=== PATIENT | female | born 1950 | race Caucasian/White ===

== ENCOUNTER 2018-11-21 13:15 | Inpatient (IN) | payer MEDICARE ==
[2018-12-03] MEDS ORDERED: Tranexamic Acid 1,000 MG/10 ML VIAL ONE (06:50)
[2018-12-03] MEDS ORDERED: Sodium Chloride 0.9% 100 ML ONE (06:50)
[2018-12-03] MEDS ORDERED: ceFAZolin Sodium (SDC) 2 GM/100 ML BAG ONE (06:50)
[2018-12-03] MEDS ORDERED: Lidocaine 1.5% w/Epi 1:200K 30 ML VIAL (Epid Use) ONE (07:56)
[2018-12-03] MEDS ORDERED: Naloxone HCl 0.4 mg/ml Vial IVP PRN (08:45)
[2018-12-03] MEDS ORDERED: diphenhydrAMINE 50 MG/ML VIAL IVP PRN (08:45)
[2018-12-03] MEDS ORDERED: Naloxone HCl 0.4 mg/ml Vial IV PRN (08:45)
[2018-12-03] MEDS ORDERED: HYDROcodone/Acetaminophen 5/325 mg Tablet PO PRN ×4 (08:45→09:08)
[2018-12-03] MEDS ORDERED: traMADol HCl 50 MG TAB PO PRN ×2 (08:45)
[2018-12-03] MEDS ORDERED: Promethazine HCl 25 MG SUPP PR PRN (08:45)
[2018-12-03] MEDS ORDERED: Acetaminophen 500 MG TAB PO PRN (08:45)
[2018-12-03] MEDS ORDERED: diphenhydrAMINE 25 MG CAP PO PRN ×2 (08:45→09:05)
[2018-12-03] MEDS ORDERED: diphenhydrAMINE 50 MG/ML VIAL IM PRN (08:45)
[2018-12-03] MEDS ORDERED: Promethazine HCl 25 MG/ML VIAL IM PRN ×3 (08:45→10:51)
[2018-12-03] MEDS ORDERED: Ondansetron PF 4 MG/2 ML Vial IVP PRN ×2 (08:45→09:05)
[2018-12-03] MEDS ORDERED: Hydrocerin (Eucerin) Cream 120 gm Jar TOP PRN (08:45)
[2018-12-03] MEDS ORDERED: Bupivacaine 0.25% 10 ML VIAL EPIDURAL PRN (08:45)
[2018-12-03] MEDS ORDERED: Zolpidem Tartrate 5 MG TAB PO PRN ×2 (08:45→09:05)
[2018-12-03] MEDS ORDERED: Levofloxacin 500 mg/D5W 100 ml Premix Bag ONE (09:03)
[2018-12-03] MEDS ORDERED: Acetaminophen 325 MG TAB PO PRN (09:05)
[2018-12-03] MEDS ORDERED: Bupivacaine HCl 0.5%/Epinephrine 1:200,000/PF 30 ml Vial ONE (09:13)
[2018-12-03] MEDS ORDERED: Ondansetron HCl/PF 4 MG/2 ML Vial IVP PRN (10:51)
[2018-12-03] MEDS ORDERED: Promethazine HCl 25 MG/ML VIAL SLOW IVP PRN (10:51)
--- NOTE | 2018-12-03 11:06 | OP ---
DATE OF PROCEDURE: 12/03/2018 PREOPERATIVE DIAGNOSIS: End-stage bicompartmental osteoarthritis, right hip. POSTOPERATIVE DIAGNOSIS: End-stage bicompartmental osteoarthritis, right hip. PROCEDURE PERFORMED: Press-fit right total hip arthroplasty. SLABBING MACHINE OPERATOR: Nelson Putnam PA-C ANESTHESIA: General via endotracheal tube augmented with indwelling epidural. COMPONENTS USED: [employer] Accolade II size 4 press-fit hip stem with a Trident PSL 50 mm press-fit acetabular shell, 36 mm inner diameter 10 degree polyethylene fixed bearing insert, and a ceramic 36 mm V40 femoral head. FINDINGS: End-stage severe degenerative bicompartmental disease, mzqo-vl-ruae arthrosis, periarticular osteophyte formation, large tears of fusion, hypertrophic synovium, and changes consistent with degenerative chronic osteoarthritis. INPUT: 1500 mL crystalloid. OUTPUT: 400 mL of clear yellow urine. ESTIMATED BLOOD LOSS: 100 mL. DRAINS: None. SPECIMENS: None. COMPLICATIONS: None. COUNTS: Correct. INDICATION FOR SURGERY: Marta is a 68-year-old female, who has had progressive right hip, groin, and thigh pain and problems with standing or walking for the last five to seven years. She has failed conservative management, elected to proceed with total hip arthroplasty as definitive treatment for pain. PROCEDURE IN DETAIL: After informed consent was obtained in the preoperative holding area, the patient was taken to the operative suite where general anesthesia was induced. The patient was then positioned in the lateral decubitus position. The hip was then prepped and draped in usual sterile fashion. The patient received preoperative antibiotics. Prior to incision, time-out was called and all members of the surgical team agreed upon site, surgeon, and patient. After this, a longitudinal incision was made directly over the trochanter, noted by palpation extending 2 fingerbreadths above and below the trochanter. The deeper subcutaneous layer was undermined with Bovie electrocautery. The iliotibial band was encountered and incised sharply and the plane below this was developed bluntly. A Charnley retractor was placed to hold this opened. The lateral aspect of the trochanter and the abductor muscles were encountered and then reflected anteriorly off the trochanter using Bovie electrocautery. Once this was completed, the anterior capsule was then encountered and identified and copious capsulotomy was carried out, exposing the femoral neck and head. Dislocation maneuver was then performed and an in situ provisional neck cut was then made using the oscillating saw. Attention was then turned to acetabular preparation and sequential reaming was carried out up to the appropriate diameter. A trial was then malleted into place with good firm resistance and no pullout. The permanent acetabular shell was then malleted squarely into place, as was the appropriate liner. Once completed, the wound was copiously irrigated and attention was then turned to femoral preparation. Flexion and external rotation were performed of the exposed thigh and femoral elevators were then placed at the proximal aspect of the wound. Canal finder was used to establish the length of the canal and sequential reaming was carried out, followed by broaching. Once the appropriate stability was established with the trial broaches with flexion, extension and rotational stability, we did trial with neutral and 2 mm offset incremental necks. Once the appropriate size was decided upon, with good stability noted with flexion, extension, internal and external rotation and shuck being negative, we removed the femoral trial broach and malleted into place the permanent prosthesis with good firm fit, which was also stable to rotation. Again, the hip felt very stable to flexion, extension, internal and external rotation. Leg lengths appeared near anatomic clinically and we were quite happy with prosthesis placement. Copious irrigation was then carried out through the entirety of the wound. Primary closure of the abductors was accomplished with interrupted #2 Vicryl qfovlw-qh-gsyco stitches and the IT band was then closed with interrupted #2 Vicryl, oversewn with a #2 running barbed Quill stitch. Subcutaneous fascia was closed with running barbed Quill stitch and a subcuticular Monocryl barbed Quill stitch was used for skin closure and augmented with skin cement. A sterile dressing was applied. The procedure was terminated without any complication. All counts were correct. The patient was awakened in the operative suite and taken to the recovery room in stable condition. Job ID: [id number]
[2018-12-03] MEDS ORDERED: Fentanyl 100 MCG/2 ML VIAL ONE (11:29)
--- NOTE | 2018-12-03 11:54 | RAD ---
RIGHT HIP TWO VIEWS: HISTORY: Postop right hip arthroplasty. COMPARISON: None. FINDINGS: Two views of the right hip show the patient to be status post right hip arthroplasty without perihard estevez lucency or fracture. Air in the soft tissues is from recent surgery. IMPRESSION: Status post right hip arthroplasty without evidence of complication. POS: CET
[2018-12-03] MEDS: Ketorolac Tromethamine 30 MG/ML VIAL IVP SCH ×2 (12:50→17:42)
[2018-12-03] MEDS: Sodium Chloride 0.9% 1,000 ML IV SCH ×3 (14:35→21:07)
[2018-12-03] MEDS ORDERED: Dexamethasone 20 MG/5 ML VIAL ONE (15:35)
[2018-12-03] MEDS ORDERED: Ondansetron PF 4 MG/2 ML Vial ONE (15:35)
[2018-12-03] MEDS ORDERED: PROPOFOL 200 MG/20 ML VIAL ONE (15:35)
[2018-12-03] MEDS ORDERED: Lidocaine 1% PF 5 ML VIAL ONE (15:35)
[2018-12-03] MEDS: CEFAZOLIN 2 GM, Admixture Fee 1 EACH in Sodium Chloride 0.9% 100 ML IVPB SCH ×2 (15:52→23:50)
[2018-12-03] MEDS: Atorvastatin Calcium 10 MG TAB PO SCH (21:24)
[2018-12-03] MEDS: Aspirin 81 mg Enteric Coated Tablet PO SCH (21:24)
[2018-12-04] MEDS: Ketorolac Tromethamine 30 MG/ML VIAL IVP SCH ×4 (00:07→19:28)
[2018-12-04] MEDS ORDERED: cloNIDine 0.1 MG TAB PO PRN (01:10)
[2018-12-04] MEDS ORDERED: hydrALAZINE 20 MG/ML VIAL SLOW IVP PRN (01:10)
[2018-12-04] MEDS: fentaNYL Citrate/PF 500 MCG, Bupivacaine 10 ML in Sodium Chloride 0.9% 80 ML EPIDURAL SCH ×2 (04:33→20:29)
[2018-12-04 05:34] LABS: Hemoglobin 10.5 g/dL (12.0-16.0); Mean Corpuscular HGB CONC 32.4 g/dL (32.0-36.0); Mean Corpuscular Hemoglobin 30.3 pg (27.0-31.0); Mean Corpuscular Volume 93.4 fL (78.0-98.0); Mean Platelet Volume 8.7 fL (7.4-10.4); Platelet Count 186 thou/uL (130-400); RBC Distribution Width 11.5 % (11.5-14.5); Red Blood Cell (RBC) Count 3.48 mill/uL (4.20-5.40); White Blood Cell (WBC) Count 8.4 thou/uL (4.8-10.8)
[2018-12-04 05:45] LABS: Anion Gap 10 mmol/L (10-20); BUN (Urea Nitrogen) 13 mg/dL (9.8-20.1); Calc. Creatinine Clearance 68 mL/min (70-130); Calcium 8.9 mg/dL (7.8-10.44); Carbon Dioxide 28 mmol/L (23-31); Chloride 106 mmol/L (98-107); Estimated GFR-MDRD Greater than 90; Glucose 107 mg/dL (80-115); Potassium 3.5 mmol/L (3.5-5.1); Sodium 140 mmol/L (136-145)
[2018-12-04] MEDS: Sodium Chloride 0.9% 1,000 ML IV SCH ×2 (06:40→19:56)
--- NOTE | 2018-12-04 08:27 | PRG ---
DATE OF SERVICE: 12/04/2018 SUBJECTIVE: Marta is a 68-year-old white female, who is postop day 1 from a right total hip arthroplasty. Her pain is relatively well controlled this morning and she essentially has no complaints. She does of note have a history of qjxk-wn-wsjwtfls dementia. Currently, I am unaware of the patient's and/or family's plans for disposition at discharge. OBJECTIVE: VITAL SIGNS: Temperature 98.3, pulse 82, respiratory rate 16 and nonlabored, and blood pressure is 142/66. GENERAL: She is alert, responsive, and appropriate with examiner. EXTREMITIES: Her incision is clean. No strike through. No erythema. No malrotation. No shortening. LABORATORY DATA: Hemoglobin and hematocrit 10.5 and 32.5. IMPRESSION: 1. A 68-year-old female postoperative day 1, right total hip arthroplasty. 2. Ktdi-it-qdluvjek dementia. 3. Anemia. PLAN: Continue current care. We will establish disposition after discussing the family. Consider discharge home versus skilled. Job ID: [id number]
[2018-12-04] MEDS: Senokot S 8.6-50 MG TAB PO SCH ×2 (08:51→21:14)
[2018-12-04] MEDS: Multivitamin W/ Minerals 1 TAB PO SCH (08:51)
[2018-12-04] MEDS: Ferrous Gluconate 324 MG TAB PO SCH ×2 (08:51→20:37)
[2018-12-04] MEDS: Aspirin 81 mg Enteric Coated Tablet PO SCH ×2 (08:51→20:37)
[2018-12-04] MEDS: Lisinopril 10 MG TAB PO SCH (08:52)
[2018-12-04] MEDS: Donepezil HCl 10 MG TAB PO SCH (08:52)
--- NOTE | 2018-12-04 15:21 | CON ---
DATE OF CONSULTATION: 12/04/2018 PRIMARY CARE PROVIDER: Unknown. CHIEF COMPLAINT: Management of medical comorbidities. HISTORY OF PRESENT ILLNESS: Ms. Styles is a pleasant 68-year-old lady, who was seen at [facility] on December 04, 2018. She had right hip arthroplasty on December 03, 2018. Hospitalist Team was consulted for management of medical comorbidities. Ms. Styles denies any chest pain, shortness of breath, fevers, or chills. She denies any nausea or vomiting. REVIEW OF SYSTEMS: All systems were reviewed and were negative except for the pertinent positives or negatives mentioned above. PAST MEDICAL HISTORY: Dyslipidemia, hypertension, probable dementia. PAST SURGICAL HISTORY: None. SOCIAL HISTORY: The patient denies tobacco use, alcohol use, or recreational drug use. FAMILY HISTORY: The patient denies any family history of premature coronary artery disease. ALLERGIES: NO KNOWN DRUG ALLERGIES. CURRENT MEDICATIONS: 1. Lipitor 10 mg at bedtime. 2. Donepezil 10 mg daily. 3. Lisinopril 10 mg daily. PHYSICAL EXAMINATION: GENERAL: On examination, Ms. Styles is awake and alert, not in acute distress. VITAL SIGNS: Blood pressure is 117/64, pulse 84, respiratory rate 16, and oxygen saturation 95% on room air. She is afebrile. EYES: No scleral icterus, no conjunctival pallor. ENT: Moist mucosal membranes. No oropharyngeal erythema or exudates. NECK: Supple, nontender, trachea is midline. RESPIRATORY: Accessory muscles of breathing are not active. Chest wall movements are symmetric bilaterally. Lungs are clear to auscultation without wheeze, rhonchi, or crepitations. CARDIOVASCULAR: S1 and S2 are heard, regular. Peripheral pulses palpable. No carotid bruit. No pericardial rub. ABDOMEN: Soft, nontender, bowel sounds heard. NEUROLOGIC: The patient has difficulty finding words. Otherwise, cranial nerves 2 through 12 are intact. MUSCULOSKELETAL: Status post right hip surgery. SKIN: No rashes or subcutaneous nodules. LYMPHATIC: No cervical lymphadenopathy. PSYCHIATRIC: Normal mood, normal affect, the patient is oriented to person, place, and time. LABORATORY DATA: Ms. Styles's labs and investigations were reviewed. She has normal white count, normocytic anemia with hemoglobin 10.5, normal platelet count, and an unremarkable Chem-7. ASSESSMENT AND PLAN: Ms. Styles is a pleasant, 68-year-old lady, who was seen at [facility] on December 04, 2018. Her problem list includes: 1. Hypertension: Blood pressure is currently controlled, continue lisinopril, monitor vital signs, and titrate antihypertensives as needed. 2. Dyslipidemia: Stable, continue atorvastatin. 3. Dementia: Continue donepezil. LEVEL OF RISK: Moderate. LEVEL OF COMPLEXITY: Moderate. Job ID: [id number]
[2018-12-04 15:54] VITALS: BMI 168.2
[2018-12-04] MEDS: Atorvastatin Calcium 10 MG TAB PO SCH (20:37)
[2018-12-05] MEDS: Ketorolac Tromethamine 30 MG/ML VIAL IVP SCH ×2 (00:24→06:04)
[2018-12-05] MEDS: Sodium Chloride 0.9% 1,000 ML IV SCH ×2 (04:21→12:10)
[2018-12-05 05:53] LABS: Hemoglobin 9.9 g/dL (12.0-16.0); Mean Corpuscular HGB CONC 33.5 g/dL (32.0-36.0); Mean Corpuscular Hemoglobin 31.2 pg (27.0-31.0); Mean Corpuscular Volume 93.1 fL (78.0-98.0); Mean Platelet Volume 8.9 fL (7.4-10.4); Platelet Count 160 thou/uL (130-400); RBC Distribution Width 11.6 % (11.5-14.5); Red Blood Cell (RBC) Count 3.18 mill/uL (4.20-5.40); White Blood Cell (WBC) Count 7.5 thou/uL (4.8-10.8)
[2018-12-05] MEDS: Donepezil HCl 10 MG TAB PO SCH (09:23)
[2018-12-05] MEDS: Aspirin 81 mg Enteric Coated Tablet PO SCH (09:23)
[2018-12-05] MEDS: Senokot S 8.6-50 MG TAB PO SCH (09:23)
[2018-12-05] MEDS: Multivitamin W/ Minerals 1 TAB PO SCH (09:23)
[2018-12-05] MEDS: Ferrous Gluconate 324 MG TAB PO SCH (09:24)
[2018-12-05] MEDS: Lisinopril 10 MG TAB PO SCH (09:24)
[2018-12-05 12:06] VITALS: BP 134/77; TEMP 98
--- NOTE | 2018-12-05 15:40 | PDOC.HOSPP ---
- Subjective Subjective: Patient seen and examined for med mngt. Pain controlled. No fever/chills. No new complaints. No overnight events - Objective Vital Signs & Weight: Vital Signs (12 hours) Temp Pulse Resp BP BP Pulse Ox 12/05/18 12:02 98.0 F 78 14 134/77 99 12/05/18 09:24 117/64 12/05/18 07:37 98.1 F 83 16 116/54 L 93 L 12/05/18 04:29 98.5 F 78 16 120/71 98 Weight Admit Weight 98 lb Weight 1.568 oz I&O: 12/04/18 12/05/18 12/06/18 06:59 06:59 06:59 Intake Total 2540 191.5 Output Total 2000 475 Balance 540 -283.5 Result Diagrams: 12/05/18 05:24 12/04/18 04:40 ROS - Review of Systems All systems: All other ROS were reviewed and found negative. Respiratory: denies: cough, dry, shortness of breath, hemoptysis, SOB with excertion, pleuritic pain, sputum, wheezing, other Cardiovascular: denies: chest pain, palpitations, orthopnea, paroxysmal noc. dyspnea, edema, light headedness, other Gastrointestinal: denies: nausea, vomitting, abdominal pain, diarrhea, constipation, melena, hematochezia, other - Exam NAD Heart: RRR, no rubs Respiratory: CTAB, no ronchi Gastrointestinal: soft, non-tender, normal bowel sounds Hosp A/P (1) HTN (hypertension) Code(s): I10 - ESSENTIAL (PRIMARY) HYPERTENSION (2) HLD (hyperlipidemia) Code(s): E78.5 - HYPERLIPIDEMIA, UNSPECIFIED (3) Dementia Code(s): F03.90 - UNSPECIFIED DEMENTIA WITHOUT BEHAVIORAL DISTURBANCE (4) Chronic anemia Code(s): D64.9 - ANEMIA, UNSPECIFIED - Plan PT/OT Cont Lisinopril Cont Aricept Cont Statins Will follow PRN
== END 2018-12-05 15:15 | disposition home or self-care (01) | DRG 470 ==
LOC: SURG A 12-03 06:35
PROVIDERS: ADMIT Orthopaedic Surgery; ATTEND Orthopaedic Surgery
PROC: 0SR902A Replacement of Right Hip Joint with Metal on Polyethylene Synthetic Substitute, Uncemented, Open Approach (ICD-10-PCS; principal; 2018-12-03)
DX: M16.11 Unilateral primary osteoarthritis, right hip (principal); F03.90 Unspecified dementia, unspecified severity, without behavioral disturbance, psychotic disturbance, mood disturbance, and anxiety; D64.9 Anemia, unspecified; I10 Essential (primary) hypertension; E78.5 Hyperlipidemia, unspecified; Z79.899 Other long term (current) drug therapy
CPT/HCPCS: 36415; 80048; 85027; J0670; J0690; J1100; J1885; J1956; J2001; J2405; J2550; J2704; J3010; J3370; J3490; Q0163

== ENCOUNTER 2018-11-21 13:32 | Outpatient (CLI) | payer MEDICARE ==
[2018-11-21 15:21] LABS: #Basophils 0.1 thou/uL (0.0-0.2); #Eosinphils 0.1 thou/uL (0.0-0.7); #Lymphocytes 1.8 thou/uL (1.20-3.40); #Monocytes 0.6 thou/uL (0.11-0.59); %Basophils 0.7 % (0.0-1.0); %Eosinophils 1.2 % (0.0-10.0); %Lymphocytes 20.8 % (21.0-51.0); %Monocytes 6.6 % (0.0-10.0); %Neutrophils 70.7 % (42.0-75.0); Hemoglobin 13.1 g/dL (12.0-16.0); Mean Corpuscular HGB CONC 31.8 g/dL (32.0-36.0); Mean Corpuscular Hemoglobin 29.7 pg (27.0-31.0); Mean Corpuscular Volume 93.4 fL (78.0-98.0); Mean Platelet Volume 8.6 fL (7.4-10.4); Platelet Count 284 thou/uL (130-400); RBC Distribution Width 11.8 % (11.5-14.5); Red Blood Cell (RBC) Count 4.41 mill/uL (4.20-5.40); White Blood Cell (WBC) Count 8.4 thou/uL (4.8-10.8)
[2018-11-21 15:24] LABS: Bacteria/HPF None Seen HPF (None Seen); Bilirubin Negative (Negative); Blood, Urine Negative (Negative); Clarity Clear (Clear); Glucose, Urine (Dipstick) Normal (Negative); Leukocyte Negative Leu/uL (Negative); Nitrite Negative (Negative); Protein, Urine (Dipstick) Negative (Neg-Trace); RBC/HPF 0-3 HPF (0-3); Squamous Epithelial None Seen HPF (0-3); Urobilinogen Normal mg/dL (Less than 2); WBC/HPF 0-3 HPF (0-3)
[2018-11-21 15:26] LABS: Prothrombin Time 13.3 SEC (12.0-14.7)
[2018-11-21 15:37] LABS: Anion Gap 12 mmol/L (10-20); BUN (Urea Nitrogen) 16 mg/dL (9.8-20.1); Calc. Creatinine Clearance 0 mL/min (70-130); Carbon Dioxide 29 mmol/L (23-31); Chloride 106 mmol/L (98-107); Estimated GFR-MDRD 88; Glucose 89 mg/dL (80-115); Potassium 4.5 mmol/L (3.5-5.1); Sodium 142 mmol/L (136-145)
--- NOTE | 2018-11-22 17:06 | EKG ---
Test Reason : Blood Pressure : / mmHG Vent. Rate : 060 BPM Atrial Rate : 060 BPM P-R Int : 142 ms QRS Dur : 082 ms QT Int : 396 ms P-R-T Axes : 086 086 075 degrees QTc Int : 396 ms Normal sinus rhythm Possible Left atrial enlargement Borderline ECG No previous ECGs available Confirmed by DR. Hever THAPA ([id number]) on 11/22/2018 5:06:22 PM Referred By: RIKA Confirmed By:DR. Hever THAPA
== END 2018-11-21 13:33 | disposition home or self-care (01) ==
LOC: LABBT 13:32
PROVIDERS: ATTEND Orthopaedic Surgery
DX: Z01.818 Encounter for other preprocedural examination (principal); M16.11 Unilateral primary osteoarthritis, right hip
CPT/HCPCS: 80048; 81001; 85025; 85610; 87081; 93005; 93010